=== PATIENT | male | born 1965 | race Hispanic/Latino ===

== ENCOUNTER → 2018-05-18 | Outpatient (CLI) | payer SELFPAY | END | disposition home or self-care (01) | LOC: OIH 13:47 | PROVIDERS: ATTEND Internal Medicine Cardiovascular Disease | DX: Z13.6 Encounter for screening for cardiovascular disorders (principal) | CPT/HCPCS: 75571 ==

== ENCOUNTER → 2018-06-07 | Outpatient (CLI) | payer BC | END | disposition home or self-care (01) | LOC: SHCH 08:06 | PROVIDERS: ATTEND Internal Medicine Cardiovascular Disease | DX: I71.4 Abdominal aortic aneurysm, without rupture (principal) | CPT/HCPCS: 93978 ==

== ENCOUNTER → 2018-06-20 | Outpatient (CLI) | payer BC ==
[~2018-06-20] MED LIST: REGADENOSON 0.4 MG/5 ML PF SYG IVP SCH
== END | disposition home or self-care (01) ==
LOC: SHCH 07:49
PROVIDERS: ATTEND Internal Medicine Cardiovascular Disease
DX: I20.8 Other forms of angina pectoris (principal)
CPT/HCPCS: 78452; 93017; 96374; A9500 ×2; J2785 ×3

== ENCOUNTER → 2019-01-05 | Outpatient (CLI) | payer BC | END | disposition home or self-care (01) | LOC: SHCH 14:44 | PROVIDERS: ATTEND Internal Medicine Cardiovascular Disease | DX: I73.9 Peripheral vascular disease, unspecified (principal) | CPT/HCPCS: 93925 ==

== ENCOUNTER → 2021-03-10 | Outpatient (CLI) | payer BC ==
[~2021-03-10] VITALS: Ht 177.8 cm; Wt 127.0 kg
== END | disposition home or self-care (01) ==
LOC: SHCH 08:23
PROVIDERS: ATTEND Internal Medicine Cardiovascular Disease
DX: R06.09 Other forms of dyspnea (principal); I20.9 Angina pectoris, unspecified; I99.8 Other disorder of circulatory system
CPT/HCPCS: 78452; 93017; 96374; A9500 ×2; J2785